=== PATIENT | female | born 1995 | race Caucasian/White ===

== ENCOUNTER 2017-02-19 17:16 | Emergency (ER) | payer MEDICAID ==
[2017-02-19 19:22] LABS: BASOPHIL % 0.3 % (0-2); PLATELET COUNT 336 x10^3mcL (130-400); RED CELL DISTRIBUTION WIDTH 12.1 % (11.5-14.5)
[2017-02-19 19:25] LABS: CALCIUM 8.5 mg/dL (8.5-10.1); CARBON DIOXIDE 21.4 mmol/L (21-32); CHLORIDE SERUM 107 mmol/L (98-107); CREATININE SERUM 0.5 mg/dL (0.6-1.0); GFR1 > 60 mL/min; GLUCOSE SERUM 94 mg/dL (74-106); POTASSIUM SERUM 3.6 mmol/L (3.5-5.1); SODIUM SERUM 137 mmol/L (136-145)
[2017-02-19 19:29] LABS: ALBUMIN 3.6 g/dL (3.4-5.0); ALKALINE PHOSPHATASE 64 U/L (46-116); ALT/SGPT 109 U/L (14-59); AST/SGOT 36 U/L (15-37); BILIRUBIN TOTAL 0.4 mg/dL (0.20-1.00); LIPASE 221 IU/L (73-393); TOTAL PROTEIN, SERUM 7.3 g/dL (6.4-8.2)
[2017-02-19 19:55] LABS: microscopic required? NO
[2017-02-19 20:40] LABS: urine erythrocyte NEGATIVE (NEGATIVE)
[2017-02-19 22:55] VITALS: BP 121/84
== END 2017-02-19 22:55 | disposition home or self-care (01) ==
LOC: ED 17:16
PROVIDERS: Emergency Medicine
DX: R10.30 Lower abdominal pain, unspecified (principal); R10.11 Right upper quadrant pain; I10 Essential (primary) hypertension; Z79.2 Long term (current) use of antibiotics
CPT/HCPCS: 36415; 87491; 87591; J1885; Q0092

== ENCOUNTER 2017-07-13 05:58 | Emergency (ER) | payer MEDICAID ==
[2017-07-13 07:14] VITALS: BP 102/59
== END 2017-07-13 07:14 | disposition home or self-care (01) ==
LOC: ED 05:58
DX: S29.011A Strain of muscle and tendon of front wall of thorax, initial encounter (principal); I10 Essential (primary) hypertension; X58.XXXA Exposure to other specified factors, initial encounter; Y93.89 Activity, other specified; Y92.89 Other specified places as the place of occurrence of the external cause; Y99.8 Other external cause status
CPT/HCPCS: J1885; Q0092

== ENCOUNTER 2019-01-27 00:20 | Inpatient (IN) | payer MEDICAID ==
[~2019-01-27] VITALS: Ht 170.2 cm; Wt 91.8 kg
[2019-01-27 00:26] VITALS: Ht 170.2 cm; Wt 91.8 kg
--- NOTE | 2019-01-27 00:36 | NUR ---
EKG IN PROGRESS
--- NOTE | 2019-01-27 01:15 | NUR ---
PT PRESENTS TO ER TODAY WITH C/O OF CHEST PAIN THAT STARTED APPROX 3 DAYS AGO. PT STATES THAT HER CHEST FEELS NUMB AND IS NON RADIATING. PT STATES THAT PAIN IS WORSE WITH INHALATION. PT ALSO REPORTS R SIDED LOWER BACK PAIN THAT IS SHARP PT DENIES ANY DYSURIA OR HEMATURIA. PT ALSO REPORTING 4 EPISODES OF DIARRHEA AND TACTILE FEVERS AT HOME. PT LUNG SOUNDS ARE CLEAR IN ALL [place] WITH AUSCULTATION. PT IS A/O X4. RESP ARE EQUAL AND UNLABORED. NO ACUTE DISTRESS NOTED.
[2019-01-27 01:25] LABS: PLATELET COUNT 232 x10^3mcL (130-400); RED CELL DISTRIBUTION WIDTH 13.1 % (11.5-14.5)
[2019-01-27 01:26] LABS: BASOPHIL % 0 % (0-2)
[2019-01-27 01:27] LABS: microscopic required? YES; urine erythrocyte 1+ (NEGATIVE)
[2019-01-27 01:46] LABS: ALBUMIN 3.7 g/dL (3.4-5.0); ALKALINE PHOSPHATASE 74 U/L (46-116); ALT/SGPT 130 U/L (14-59); AST/SGOT 36 U/L (15-37); BILIRUBIN TOTAL 0.96 mg/dL (0.20-1.00); CALCIUM 8.6 mg/dL (8.5-10.1); CARBON DIOXIDE 19.1 mmol/L (21-32); CHLORIDE SERUM 99 mmol/L (98-107); CREATININE SERUM 0.7 mg/dL (0.6-1.0); GFR1 > 60 mL/min; GLUCOSE SERUM 101 mg/dL (74-106); SODIUM SERUM 134 mmol/L (136-145)
[2019-01-27 01:51] LABS: POTASSIUM SERUM 2.9 mmol/L (3.5-5.1)
--- NOTE | 2019-01-27 03:44 | NUR ---
REPORT GIVEN TO BRIDGER PLASCENCIA TO ASSUME CARE OF PT.
--- NOTE | 2019-01-27 03:54 | NUR ---
GUANAKO SPOKE TO RESIDENT ABOUT PTS ADMIT ORDERS NOT BEING SUBMITTED YET. RESIDENT STATES SHE IS WROKING ON IT BUT IT IS OK TO TAKE PT TO HER ROOM ON TELEMETRY.
--- NOTE | 2019-01-27 04:10 | NUR ---
PATIENT RECEIVED FROM ED VIA [facility] ACCOMPANIED BY RN AND EMT, PATIENT AMBULATED FROM [facility] TO TO BED WITH STEADY SLOW GAIT, VERBALIZED MILD GENERALIZED WEAKNESS. PATIENT GOWNED AND VITAL SIGNS TAKEN. ACQUIANTED TO BEDSIDE EQUIPMENTS AND UNIT POLICIES, CALL LIGHT PLACED IN REACH, SAFETY PRECAUTIONS INITIATED. PATIENT STATED THAT THE REASON FOR SEEKING MEDICAL INTERVENTION IS BECAUSE OF CONSTANT SHARP MID LATERAL BACK PAIN FOR 3D, N/V X1, POOR APPETITE LATELY, DYSURIA.RECEIVED WITH IVF OF MAGNESIUM SULFATE , K-RIDER 20ME AND 500 ML NS, REGULATED ON A PUMP, IV SITE TO LEFT WRIST INTACT, TAPE SECURED. PATIENT INFORMED ABOUT PLAN OF CARE AND MANAGEMENT OF PAIN. WILL CONTINUE TO MONITOR.
[2019-01-27 04:31] VITALS: BP 130/76
--- NOTE | 2019-01-27 05:00 | NUR ---
SPOKE TO DR DANIELS ABOUT PAIN MANAGEMENT MED, IVF AND DIET.
--- NOTE | 2019-01-27 06:00 | NUR ---
JEANINE NEVILLE APPLIED AND PATIENT INFORMED ABOUT ITS PURPOSE AND IMPORTANCE BEING FOR DVT PROPHYLAXIS.
[2019-01-27 06:01] VITALS: BP 124/70
--- NOTE | 2019-01-27 06:31 | NUR ---
PATIENT SINCE ARRIVAL TO THE HAD BEEN SLEEPING COMFORTABLY, WAS MEDICATED THIS AM WITH NORCO AND STATED RECEIVED DESIRED RELIEF AT 2/10. STARTED NEW IVF OF NS AT 100 ML/HR. PATIENT INFORMED ABOUT POC. SAFETY PRECAUTIONS INITIATED. WILL ENDORSE CONTINUITY OF CARE TO INCOMING NURSE.
[2019-01-27 06:55] LABS: CHOLESTEROL/HDL RATIO 2.9; MAGNESIUM 1.5 mg/dL (1.8-2.4); PHOSPHOROUS 2.9 mg/dL (2.5-4.9)
--- NOTE | 2019-01-27 07:24 | NUR ---
BEDSIDE HANDS OFF AND INTRODUCTION PERFORMED WITH INCOMING NURSE HEATHER-THAIS.
--- NOTE | 2019-01-27 07:43 | NUR ---
CALL AND SPOKE WITH DR. MOREIRA REGARD FEVER 101.3 COOL MEASURES PROVIDED AND PAIN 8/10 ABDOMEN PATIENT RECEIVED NORCO AT 0530 AND NOT YET DUE; PER DR. MOREIRA WILL ORDER TORADOL.
--- NOTE | 2019-01-27 07:51 | NUR ---
MEDICATED W/ TORADOL 30MG IVP TO LW IV SITE PATENT, COOLING MEASURES W/ ICE PACKS. CONT TO MONITOR.
[2019-01-27 08:01] VITALS: BP 125/62
[2019-01-27 08:32] LABS: BASOPHIL % 0.3 % (0-2); PLATELET COUNT 235 x10^3mcL (130-400); RED CELL DISTRIBUTION WIDTH 12.9 % (11.5-14.5)
--- NOTE | 2019-01-27 11:00 | NUR ---
PATIENT RESTING IN BED DR. DALEY WITH RESIDENT SEEN PATIENT AND DISCUSS POC AND PAIN MANAGEMENT.
[2019-01-27 12:38] VITALS: BP 105/67
--- NOTE | 2019-01-27 12:59 | NUR ---
PATIENT BACK FROM BATHROOM, URINE COLLECTED FOR UDS. C/O CHILLS AND SHIVERING, CHECK TEMP 99.0(TE) UNABLE TO CHECK ORAL D/T PATIENT EATING ICE CHIPS. TYLENOL 650MG PO FOR FEVER AND RT FLANK PAIN 12/26. PAGE DR. SÁNCHEZ FOR DIET ORDER PT REPORT NOT NAUSEATED ANYMORE. CONT TO MONITOR.
[2019-01-27 13:08] LABS: UA SPECIFIC GRAVITY 1.025 (1.005-1.035); microscopic required? YES; urine erythrocyte TRACE (NEGATIVE)
[2019-01-27 13:15] LABS: AMPHETAMINE QUAL UR NONE DETECTED (See below)
[2019-01-27 13:19] LABS: CALCIUM 8.4 mg/dL (8.5-10.1); CHLORIDE SERUM 103 mmol/L (98-107); CREATININE SERUM 0.6 mg/dL (0.6-1.0); GFR1 > 60 mL/min; GLUCOSE SERUM 74 mg/dL (74-106); POTASSIUM SERUM 3.7 mmol/L (3.5-5.1); SODIUM SERUM 136 mmol/L (136-145)
--- NOTE | 2019-01-27 14:37 | NUR ---
PATIENT REPORT AFTER EATING JELLOS AND DRINK LITTLE BIT OF SODA, FEEL VERY NAUSEATED, ADVISE PATIENT TO HAVE SMALL BIT TOLERATED, MEDICATED FOR BARBOSA/ RT FLANK PAIN 01/26. TORADOL 30MG IVP, NO VOMITING NOTED. CONT TO MONITOR.
--- NOTE | 2019-01-27 15:40 | NUR ---
MEDICATED FOR RT FLANK PAIN / WITH NORCO 7.5/325MG PO; PATIENT REPORT ABLE TO KEEP JELLO DOWN THIS TIME. COOLING MEASURES FOR TEMP 100.6 CONT TO MONITOR. NEEDS MET.
[2019-01-27 16:14] VITALS: BP 114/64
--- NOTE | 2019-01-27 17:14 | NUR ---
PATIENT UP WALKING IN HALLWAY NO COMPLAINS. CONT TO MONITOR.
--- NOTE | 2019-01-27 18:37 | NUR ---
PATIENT SAT UP IN BED WITH FAMILY MEMBER AT BEDSIDE, NO COMPLAIN. TOLERATED CLEAR LIQUID DIET NO C/O NAUSEA. CONT TO MONITOR.
--- NOTE | 2019-01-27 19:21 | NUR ---
PT RECEIVED A/O X4, ABLE TO MAKE NEEDS KNOWN. FAMILY AT BEDSIDE. TELE #6, PT DENIES ANY CP/PRESSURE. PULSES PALPABLE, NO EDEMA PRESENT. BREATHING IS EVEN AND UNLABORED ON RA, NO RESP DISTRESS NOTED. ABD SOFT AND ROUND, PT DENIES ANY N/V. VOIDS FREELY, BRP. PT WAS ADMITTED FOR PYELONEPHRITIS. AMBULATORY WITH STEADY GAIT. SKIN IS WARM AND DRY, INTACT. PT C/O 8/10 FLANK PAIN, WILL MEDICATE WITH PRN PAIN MED. IVF INFUSING WELL TO LEFT WRIST, PATENT AND INTACT, SITE WNL. NO ACUTE DISTRESS NOTED. CALL LIGHT WITHIN REACH. WILL CONT TO MONITOR.
[2019-01-27 20:13] VITALS: BP 131/94
--- NOTE | 2019-01-27 20:52 | NUR ---
PT C/O 8 FLANK PAIN. PRN TYLENOL GIVEN ORDERED. PT ALSO C/O N/V, PRN ZOFRAN IVP GIVEN ORDERED. PT REPORTS SHE VOMITED HER PAIN MED, AND PT REQUESTING IV PAIN MEDICATION D/T N/V DR DANIELS CALLED AND MADE AWARE, AWAITING ORDERS AT THIS TIME.
--- NOTE | 2019-01-27 23:08 | NUR ---
PT CONT TO C/O 01/26 FLANK PAIN, ONE TIME ORDER OF TORADOL IVP GIVEN ORDERED. NO ACUTE DISTRESS NOTED. CALL LIGHT WITHIN REACH. WILL CONT TO MONITOR.
--- NOTE | 2019-01-28 00:16 | NUR ---
PT C/O DIFFICULTY SLEEPING AND REQUESTING SLEEPING PILL. DR DANIELS MADE AWARE. PRN AMBIEN GIVEN ORDERED. NO ACUTE DISTRESS NOTED. CALL LIGHT WITHIN REACH. WILL CONT TO MONITOR.
[2019-01-28 05:54] VITALS: BP 111/72
[2019-01-28 06:10] LABS: BASOPHIL % 0.3 % (0-2); PLATELET COUNT 174 x10^3mcL (130-400); RED CELL DISTRIBUTION WIDTH 13.2 % (11.5-14.5)
--- NOTE | 2019-01-28 06:23 | NUR ---
PT SLEPT WELL THROUGHOUT THE EVENING. BREATHING IS EVEN AND UNLABORED, NO RESP DISTRESS NOTED. PT C/O 8/10 FLANK PAIN, PRN NORCO GIVEN ORDERED. NO ACUTE CHANGES ENCOUNTERED DURING SHIFT. ALL NEEDS MET AND ANTICIPATED. IVF INFUSING WELL TO LAC, SITE WNL. CALL LIGHT WITHIN REACH. WILL ENDORSE CARE TO AM NURSE.
[2019-01-28 06:37] LABS: CALCIUM 8.5 mg/dL (8.5-10.1); CARBON DIOXIDE 21.5 mmol/L (21-32); CHLORIDE SERUM 104 mmol/L (98-107); CREATININE SERUM 0.6 mg/dL (0.6-1.0); GFR1 > 60 mL/min; GLUCOSE SERUM 84 mg/dL (74-106); MAGNESIUM 2.1 mg/dL (1.8-2.4); PHOSPHOROUS 2.6 mg/dL (2.5-4.9); POTASSIUM SERUM 3.8 mmol/L (3.5-5.1); SODIUM SERUM 138 mmol/L (136-145)
[2019-01-28 09:21] VITALS: BP 105/63
--- NOTE | 2019-01-28 12:45 | NUR ---
PT WAS C/O ABD PAIN AND BACK PAIN,7/10 AND NAUSEA. VOMITED 300ML OUT. MEDICATED PT WITH ZOFRAN AT 1143 AND TORADOL AT 1137. REASSESSED PT NOW AND PT STATED SHE DOESNOT HAVE ANY PAIN NOW AND NO MORE NAUSEA. WILL MONITOR.
--- NOTE | 2019-01-28 13:07 | NUR ---
Discount pharmacy card and list to low cost medical clinics given to patient by Karis Pitts.
[2019-01-28 13:31] VITALS: BP 108/64
[2019-01-28 17:18] VITALS: BP 110/73
--- NOTE | 2019-01-28 18:53 | NUR ---
PT C/O BACK PAIN,12/26 AND HAS TEMP 101.1, ALSO C/O NAUSEA AND VOMITED SMALL AMOUNT. MEDICATED PT WITH TORADOL IV AND ZOFRAN IV AT 1753 AND REASSESSD NOW AND PT SAID SHE DOESNOT HAVE PAIN AND NAUSEA NOW, TEMP IS 99. STABLE.
--- NOTE | 2019-01-28 19:05 | NUR ---
PT RESTING IN BED COMFORTABLY. DENIES PAIN. STABLE. GAVE REPORT TO PLANT CHIEF NURSE.
--- NOTE | 2019-01-28 19:30 | NUR ---
RECEIVED PT RESTING IN BED, SIGNIFICANT OTHER AND 3 KIDS AT BEDSIDE. PT AOX4, DENIES BARBOSA/DIZZINESS. TELE # 6, NSR 91, DENIES CP. PULSES PALPABLE BILAT, DENIES NUMBNESS/TINGLING IN FEET, RESP EVEN AND UNLABORED ON RA, DENIES SOB. ABD SOFT, ROUND OBESE PT. PT REPORTS PERSISTENT DYSURIA, ON ROCEPHIN FOR UTI, ON ROCEPHIN, UA CX PENDING. PT AMBULATORY, REPORTS INTERMITTENT DIZZINESS, EDUCATED PT ON USING CALL LIGHT FOR ASSISTANCE, ALL SAFETY PROTOCOLS IN PLACE. PT VERBALIZES UNDERSTANDING. SKIN INTACT. IV SITE TO THE LT WRIST PATENT, NS @ 100ML/HR. NO REDNESS, SWELLING OR PAIN NOTED. ALL COMFORT AND SAFETY MEASURES PROVIDED FOR, CALL LIGHT WITHIN REACH, BED IN LOWEST POSITION, WILL CONTINUE TO MONITOR.
[2019-01-28 20:27] VITALS: BP 114/70
--- NOTE | 2019-01-29 05:05 | NUR ---
PT RESTED IN INTERVALS DURING SHIFT, NO ACUTE CHANGES OCCURING OVERNIGHT. PT REPORTS PERSISTENT DYSURIA YET HAS DECREASED SOME SINCE RECEIVING FLUIDS AND ANTIBIOTICS. PT AMBULATED X1 AROUND NURSIN STATION, TOLERATING WELL. PT MEDICATED X1 WITH NORCO AND TORADOL WITH GOOD RELIEF. ALL COMFORT AND SAFETY MEASURES PROVIDED FOR, CALL LIGHT WITHIN REACH, BED IN LOWEST POSITION, WILL CONTINUE TO MONITOR.
[2019-01-29 05:23] VITALS: BP 112/72
[2019-01-29 06:21] LABS: BASOPHIL % 0.1 % (0-2); PLATELET COUNT 171 x10^3mcL (130-400); RED CELL DISTRIBUTION WIDTH 12.7 % (11.5-14.5)
[2019-01-29 06:51] LABS: CALCIUM 8.4 mg/dL (8.5-10.1); CARBON DIOXIDE 19.5 mmol/L (21-32); CHLORIDE SERUM 105 mmol/L (98-107); CREATININE SERUM 0.5 mg/dL (0.6-1.0); GFR1 > 60 mL/min; GLUCOSE SERUM 71 mg/dL (74-106); POTASSIUM SERUM 3.3 mmol/L (3.5-5.1); SODIUM SERUM 138 mmol/L (136-145)
--- NOTE | 2019-01-29 07:30 | NUR ---
RECEIVED PT IN BED. ASSESSED AND DOCUMENTED. DENIES ANY PAIN THIS TIME. SAFTEY PRECAUTIONS ARE IN PLACE. WILL MONITOR.
--- NOTE | 2019-01-29 08:00 | NUR ---
MILITARY LOGISTICS SPECIALIST SHANE CAME TO SEE THE PT, SPOKE WITH PT. INFORMED SHANE ABOUT PT REFUSING CL AND K=3.3, PT ASKING FOR CRACKERS. SHANE SAID SHE WILL START FULL LIQUID DIET AND REPLACE KCL.
[2019-01-29 09:48] VITALS: BP 130/69
--- NOTE | 2019-01-29 10:34 | NUR ---
PT C/O RT SIDE FLANK PAIN AND NAUSEA. MEDICATED PT WITH ZOFRAN IV AND TORADOL IV ORDERED AND REASSESSED NOW, PT SAID SHE DOESNOT FEEL PAIN AND NAUSEA. STABLE.
--- NOTE | 2019-01-29 11:30 | NUR ---
PT SAID SHE TRIED CRACKERS AND JELLOW AND SHE FEEL FINE, TOLERATED WELL.
--- NOTE | 2019-01-29 13:15 | NUR ---
Initial Nutrition Assessment: 204T/B CHEN MARTINEZROLAND IA HR Dx: Pyelonephritis, hypokalemia PMHx: none PSHx: Other (Tubal Ligation) Labs: K 3.3L, BG 71L, HGB 11.2L Meds: Colace, norco, rocephin, zofran Diet: Clear liquid PO Intake: (01/28) dinner 50%, (01/27) dinner 50% Ht: 170.18cm (67") Wt: 91.7 kg (202#) BMI: 31.7 kg/m2 Bed scale: 91.7 kg IBW: 135# (61 kg) %IBW: 149 UBW: 200-202# Age: 23/F Food Allergies: Lactose Skin: intact Sarkis: 22 Edema: none GI: Last BM: 01/26 Trigger: N/V/D>3d, poor PO >3d Per H&P, Pt is a 23 yoF with no significant PMH who came with cc of Right sided Flank pain since 3 days[address] RDN Visit (01/29): Patient was alert and oriented and said that her appetite is good. Although she has slight nausea and she east saltine crackers that make her feel better. Patient said that she has lactose intolerance and she cannot tolerate any form of dairy. Patient's diet has been progressed to full liquid. Problem with: N/V/D/C: slight nausea Problems with: Chewing/Swallowing: none Current appetite: good Recent wt change: none %wt change: n/a Vitamin/Supplement use: none Special diet at home: regular Physical activity: hiking Nutrition education given: PO was encouraged. Patient is willing to consume ONS Ensure. Food-drug interactions: Colace- high fiber w/7789-5565 ml fluids Education given: yes Estimated Nutritional Needs Based on adjusted body weight 69 kg Energy: 0102-2508 kcal/d (25-30 kcal/kg) Protein: 69-89 g/d (1.0-1.3 g/kg) - preserve LBM Fluid: 7939-4276 ml/d (1 ml/kcal) or per doctor Nutrition Diagnosis 1. Inadequate oral intake related to nausea, vomiting as evidenced by clear liquid diet order and documented PO of <75%. Intervention 1. Recommend continuing full liquid diet. When medically appropriate, progress to regular diet. Monitor/Evaluate Goal: PO intake at least 75% of estimated needs Monitor: PO intake, Labs, GI function F/U in 3-5 days as moderate risk 02/01-
--- NOTE | 2019-01-29 13:16 | NUR ---
1. Recommend continuing full liquid diet. When medically appropriate, progress to regular diet.
[2019-01-29 13:41] VITALS: BP 108/67
--- NOTE | 2019-01-29 17:22 | NUR ---
PT C/O RT SIDE FLANK PAIN,6/10 AND NAUSEA. MEDICATED PT WITH TORADOL IV AND ZOFRAN IV AT 1652 AND REASSESSED NOW AND PT SAID SHE DOESNOT FEEL PAIN OR NAUSEA NOW. STABLE. FAMILY AT BEDSIDE.
[2019-01-29 17:29] VITALS: BP 116/71
--- NOTE | 2019-01-29 19:15 | NUR ---
PT RESTING IN BED COMFORTABLY, STABLE. NO NAUSEA AND PAIN. GAVE REPORT TO ROUND CUTTER OPERATOR NURSE.
--- NOTE | 2019-01-29 19:49 | NUR ---
PT RECIEVED AAO REG RESP NO SOB V/S STABLE,IV INFUSING WELL WITH THE SITE PATENT AND INTACT,KEPT CLEAN AND DRY TO TOUCH,NO PAIN REPORTED AT THIS TIME,KEPT CLEAN AN DRY TO TOUCH,BED IN THE LOW POSITION AND LOCKED,CALL LIGGHT EASY REACHED AND WILL CONTINUE TO MONITOR.
--- NOTE | 2019-01-29 20:09 | NUR ---
PT WITH C/O OF BACK PAIN ARCHING IN NATURE AT THE SCALE OF 6/10,PT WAS MEDICATED WITH NORCO 1 TAB PO ORDER AND WILL CONTINUE TO MONITOR.
[2019-01-29 20:33] VITALS: BP 107/61
--- NOTE | 2019-01-30 03:35 | NUR ---
PT RESTING AT THIS TIME,WILL CONTINUE TO MONITOR.
[2019-01-30 05:11] VITALS: BP 109/62
[2019-01-30 06:13] LABS: BASOPHIL % 0.3 % (0-2); PLATELET COUNT 210 x10^3mcL (130-400)
[2019-01-30 06:25] LABS: CALCIUM 8.5 mg/dL (8.5-10.1); CARBON DIOXIDE 21.9 mmol/L (21-32); CHLORIDE SERUM 104 mmol/L (98-107); CREATININE SERUM 0.6 mg/dL (0.6-1.0); GFR1 > 60 mL/min; GLUCOSE SERUM 83 mg/dL (74-106); POTASSIUM SERUM 3.7 mmol/L (3.5-5.1); SODIUM SERUM 138 mmol/L (136-145)
--- NOTE | 2019-01-30 06:27 | NUR ---
PT HAD A RESTING NIGHT NO CHNAGE AT THIS TIME AND WILL CONTINUE TO MONITOR.
[2019-01-30 07:30] VITALS: BP 136/91
--- NOTE | 2019-01-30 07:48 | NUR ---
A+OX4, NO RESPRIATORY DISTRESS NOTED, COMPLAINING OF NAUSEA, ZOFRAN IVP GIVEN, TELE 6, PULSES MODERATE AND EQUAL FRANCISCO, NO EDEMA NOTED, LUNG SOUDNS CTA, TOLERATING RA, BOWEL SOUNDS ACTIVE, DIARRHEA, VOIDING FREELY, AMBULATORY WITHOUT ASSISTANCE, SKIN INTACT, IV IN LFA WITH NS @ 100 ML/HR, SITE WNL.
--- NOTE | 2019-01-30 08:37 | NUR ---
PT AMBULATING AROUND HALLWAY INDEPENDENTLY AND STATES SHE FEELS READY TO BE DC TODAY.
--- NOTE | 2019-01-30 09:13 | NUR ---
PT AMBULATING AROUND ROOM, NO RESPRIATORY DISTRESS NOTED, STATES SHE IS READY TO GO HOME, CALL LIGHT WITHIN REACH.
[2019-01-30 10:10] VITALS: BP 136/92
--- NOTE | 2019-01-30 10:32 | NUR ---
PT GIVEN DC INSTRUCTIONS INCLUDING EXCUSAL FROM WORK FROM MODEL ARTISTS', PT VERBALIZED UNDERSTANDING, IV REMOVED FROM L WRIST WITH CATHETER INTACT, GAUZE AND TAPE PLACED ON SITE, SITE WNL, TELE REMOVED AND RETURNED TO [facility]. PT AMBULATED INDEPENDENTLY OFF UNIT ESCORTED BY GIFTED PROGRAM TEACHER WITH ALL BELONGINGS.
== END 2019-01-30 10:34 | disposition home or self-care (01) | DRG 463 ==
LOC: ED 00:20 → DU 03:02
PROVIDERS: Emergency Medicine; Internal Medicine; ADMIT Internal Medicine
DX: N10 Acute pyelonephritis (principal); E83.42 Hypomagnesemia; E87.1 Hypo-osmolality and hyponatremia; E87.6 Hypokalemia; K59.00 Constipation, unspecified; E86.0 Dehydration; Z68.33 Body mass index [BMI] 33.0-33.9, adult
CPT/HCPCS: G0378; J0696; J1885; J2270; J2405; J3475; J3480; J7030; J7040; J7060; Q0092

== ENCOUNTER 2019-04-28 08:29 | Emergency (ER) | payer MEDICAID ==
[~2019-04-28] VITALS: Ht 167.6 cm; Wt 90.7 kg
[2019-04-28 08:35] VITALS: BP 135/85; Ht 167.6 cm; Wt 90.7 kg
== END 2019-04-28 10:20 | disposition home or self-care (01) ==
LOC: ED 08:29
DX: J06.9 Acute upper respiratory infection, unspecified (principal); M79.10 Myalgia, unspecified site; I10 Essential (primary) hypertension; Z98.51 Tubal ligation status

== ENCOUNTER 2019-08-23 18:21 | Emergency (ER) | payer OTHER ==
[~2019-08-23] VITALS: Ht 167.6 cm; Wt 93.4 kg
[2019-08-23 18:44] VITALS: Ht 167.6 cm; Wt 93.4 kg
[2019-08-23 21:15] VITALS: BP 143/90
== END 2019-08-23 21:14 | disposition home or self-care (01) ==
LOC: ED 18:21
DX: R07.89 Other chest pain (principal); R05 Cough; R09.81 Nasal congestion

== ENCOUNTER 2020-02-15 20:52 | Emergency (ER) | payer OTHER ==
[~2020-02-15] VITALS: Ht 167.6 cm; Wt 84.8 kg
[2020-02-15 20:54] VITALS: Ht 167.6 cm; Wt 84.8 kg
[2020-02-16 00:10] VITALS: BP 125/93
== END 2020-02-16 00:11 | disposition home or self-care (01) ==
LOC: ED 20:52
DX: R10.2 Pelvic and perineal pain (principal); I10 Essential (primary) hypertension

== ENCOUNTER 2020-04-27 10:48 | Emergency (ER) | payer OTHER, SELFPAY ==
[~2020-04-27] VITALS: Ht 167.6 cm; Wt 84.4 kg
[2020-04-27 10:49] VITALS: Ht 167.6 cm; Wt 84.4 kg
[2020-04-27 13:29] VITALS: BP 136/76
== END 2020-04-27 13:05 | disposition home or self-care (01) ==
LOC: ED 10:48
DX: B34.9 Viral infection, unspecified (principal); I10 Essential (primary) hypertension; Z20.828 Contact with and (suspected) exposure to other viral communicable diseases; Z98.51 Tubal ligation status
CPT/HCPCS: U0003